=== PATIENT | female | born 1980 | race Caucasian/White ===

== ENCOUNTER 2018-05-12 06:42 | Emergency (ER) | payer MEDICAID, SELFPAY ==
[2018-05-12 06:54] VITALS: BP 114/73; PULSE 72; RESP 16; TEMP 36.6; O2SAT 97
--- NOTE | 2018-05-12 07:25 | DI.CT_ITS ---
SYMPTOMS/DIAGNOSIS: SEVERE PAIN, RIGHT ANTERIOR LATERAL NECK; THROAT SWELLING CT EXAMINATION OF THE NECK: A with contrast enhanced examination was performed with 100 cc of Omnipaque 350. Allowing for the somewhat off-axis projections of the neck, there is no evidence of a pharyngeal or retropharyngeal mass. The base of the tongue is intact. The epiglottis and aryepiglottic folds are intact. No vocal cord abnormality is seen. There is some prominence of the submandibular salivary glands. The parotid glands appear intact. The paranasal sinuses are unremarkable save for a tiny right posterior maxillary retention cyst. The intraorbital contents are normal. There is no demonstrated bony abnormality. The thyroid gland is unremarkable. The cervical portion of the trachea is unremarkable. The bony structures are unremarkable. As visualized, the vascular structures appear intact. Incidental note is made of a right nasal ring. SUMMARY: No mass or fluid collection is identified. There is perhaps some prominence of the submandibular glands and minimal right maxillary inflammatory changes identified. The bony structures are intact.
[2018-05-12] MEDS: Acetaminophen 325 MG TAB 650 MG PO (07:30)
[2018-05-12] MEDS: Ibuprofen 600 MG TAB PO (07:31)
--- NOTE | 2018-05-12 07:34 | ED.GENADUL_ITS ---
Discharge Plan Disposition Patient Disposition: HOME Condition: Good Discharge Details Chief Complaint: Headache Clinical Impression: Pain in throat Primary Care Provider: [facility] ED Provider: Greg Doyle Discharge Instructions Additional Instructions: Your cat scan did not show any significant concerning findings. If this pain continues you should follow up with a dentist and primary care provider if you have high fevers, difficulty breathing or difficulty swallowing liquids return to the emergency department You can take 1000mg tylenol and 600mg ibuprofen every 6 hours for pain as needed Discharge Data Discharge Date/Time-TO BE ENTERED AT DEPARTURE: 05/12/18 09:18 Medical Decision Making <Miguel Pillai MD - Last Filed: 05/21/18 22:07> 7:33 --37-year-old female presents with pain and tenderness in her right anterior lateral neck that started yesterday and has worsened. Mild lymphadenopathy present. No signs of focal bacterial infection on exam. Patient has had some pain in her posterior right molar and does note intact wisdom teeth. Possible dental infection. Considered deep space infection or mass. Plan to CT neck. Ibuprofen and Tylenol given for pain. HPI <Miguel Pillai MD - Last Filed: 05/21/18 22:07> General Mode of arrival: ambulatory . Date/Time Provider Initiated Documentation: 05/12/18 07:09 . Limitations to Documentation: no limitations . Information obtained by: patient . HPI Narrative: 37-year-old female presents with chief complaint of right neck pain. Pain is localized to her anterior lateral neck and extends into the right side of her face and right posterior molar. Pain started yesterday and has persisted and worsened. She has no associated fever. No rash. No known tick bites. She has sustained some superficial cat scratches from her kitten on her right hand. No scratches to her head or face. Related Data Allergies Allergy/AdvReac Type Severity Reaction Status Date / Time narcotics Allergy Uncoded 05/12/18 06:54 General Stated Complaint: Headache ZOE: 3 Review of Systems <Miguel Pillai MD - Last Filed: 05/21/18 22:07> Review of Systems All systems reviewed & are unremarkable except as noted in HPI and below Exam <Miguel Pillai MD - Last Filed: 05/21/18 22:07> Const General: cooperative and no acute distress HENMT Head: normocephalic and atraumatic Ears: TM normal on the right and no periauricular adenopathy General nose exam: external nose normal Face and sinus: no erythema and no edema Mouth: oral mucosae normal, tongue normal, oropharynx normal and moist mucous membranes Teeth and gingiva: dentition normal Throat: posterior oropharynx normal, tonsils normal and uvula midline Eyes Conjunctivae: normal conjunctivae Sclera: normal sclerae EOM: EOM intact bilaterally Neck Neck: trachea midline, supple, anterior neck swelling (mild right), no lymphadenopathy noted and tender (anterior right neck) Lymphatic: lymphadenopathy (mild rt ant neck) Resp Auscultation: clear to auscultation bilaterally, no rales, no rhonchi and no wheezes Cardio Jugular venous pressure: no JVD Rate: regular rate and not tachycardic Rhythm: regular rhythm GI Palpation: soft, not firm, no guarding, no masses, not rigid and nontender Skin General skin exam: no rashes or lesions noted Neuro General: alert, awake, oriented x3 and tone normal Extrem General: no edema Psych Appearance: grossly normal Mental Status: mental status grossly normal Speech and Movement: speech and movement normal Course <Miguel Pillai MD - Last Filed: 05/21/18 22:07> Vital Signs Temperature 36.6 C 05/12/18 06:54 Pulse 72 05/12/18 06:54 Respiratory Rate 16 05/12/18 06:54 Blood Pressure 114/73 05/12/18 06:54 Pulse Oximetry 97 05/12/18 06:54 Temperature 36.6 C 05/12/18 06:54 Temperature Source Temporal Artery Scan 05/12/18 06:54 Pulse 72 05/12/18 06:54 Respiratory Rate 16 05/12/18 06:54 Respiratory Effort 05/12/18 06:54 Blood Pressure 114/73 05/12/18 06:54 Blood Pressure Position Sitting 05/12/18 06:54 Pulse Oximetry 97 05/12/18 06:54 Oxygen Delivery Method Room Air 05/12/18 06:54 Oxygen Flow Rate 0 05/12/18 06:54 Sign Out <Miguel Pillai MD - Last Filed: 05/21/18 22:07> Sign Out Data: Sign Out Comment: Here with right ant lateral neck pain. Plan to follow-up labs and CT and determine disposition. Last updated by Miguel Pillai MD at 05/12/18 08:08 Post-Handoff Eval: pt sleeping on my eval, awakens to voice. CT per Dr. Salmon shows no acute findings does have some inflmmation of salivary gland. Will place on abx to cover for pharngitis vs dental infection and advised f/u with dentist and also pcp (moved to the area and has no pcp, offered to place on our f/u list but she declined), return precautions given
[2018-05-12 07:51] LABS: Abs Immature Grans 0.02 k/cumm (0.0-0.09); Absolute Basophil Count 0.03 k/cumm (0.0-0.2); Absolute Eosinophil Count 0.12 k/cumm (0.0-0.7); Absolute Lymphocyte Count 1.43 k/cumm (1.2-3.4); Absolute Monocyte Count 0.54 k/cumm (0.11-0.7); Absolute Neutrophil Count 6.61 k/cumm (1.2-6.7); Basophils % 0.3; Eosinophils % 1.4; HCT 48.9 % (36.0-46.0); HGB 16.9 g/dL (12.0-15.5); Immature Grans % 0.2; Lymphocytes % 16.3; Mean Corp. HGB Concentration 34.6 g/dL (32.0-36.0); Mean Corpuscular Hemoglobin 32.1 pg (27.0-33.0); Mean Corpuscular Volume 92.8 fL (80-95); Mean Platelet Volume 10.4 fL (8.0-11.0); Monocytes % 6.2; Neutrophils % 75.6; Platelet Count 259 x1000/uL (130-400); RBC 5.27 m/cumm (4.00-5.20); RBC Distribution Width 12.4 % (11.7-14.6); White Blood Cell Count 8.75 k/cumm (4.4-10.8)
[2018-05-12 08:08] LABS: ALT 32 U/L (12-78); AST 18 U/L (15-37); Albumin 3.9 g/dL (3.4-5.0); Alkaline Phosphatase 63 U/L (46-116); Anion Gap 9.3 mmol/L (3-11); BUN 8 mg/dL (7-18); Bilirubin, Total 0.3 mg/dL (0.2-1.0); CO2 25.7 mmol/L (21.0-32.0); CREATININE 0.94 mg/dL (0.55-1.02); Calcium 9.2 mg/dL (8.5-10.1); Chloride 103 mmol/L (98-107); Glucose 89 mg/dL (70-100); Potassium 3.7 mmol/L (3.5-5.1); Sodium 138 mmol/L (136-145); Total Protein 7.6 g/dL (6.4-8.2)
[2018-05-12] MEDS: Omnipaque 350 MG/ML 100 ML BTL IJ (08:08)
== END 2018-05-12 09:18 | disposition home or self-care (01) ==
PROVIDERS: Student in an Organized Health Care Education/Training Program; Emergency Provider Emergency Medicine
DX: J02.9 Acute pharyngitis, unspecified (principal)
CPT/HCPCS: 36415; 70491; 80053; 99285; 85025; 99284; J3490